=== PATIENT | female | born 1980 | race Caucasian/White ===

== ENCOUNTER 2019-05-12 01:07 | Day surgery (SDC) | payer BC ==
[2019-05-12] VITALS (8 sets, daily range): BP systolic 101–137; BP diastolic 74–86
[~2019-05-12] VITALS: Ht 167.6 cm; Wt 75.3 kg
[~2019-05-12 01:07] MED LIST: MULT1CAP59 PO
[2019-05-12] MEDS ORDERED: fentaNYL CITR 250 MCG/5 ML AMP ONE (10:05)
[2019-05-12] MEDS ORDERED: LIDOCAINE MPF 1% 5 ML VIAL ONE (10:06)
[2019-05-12] MEDS ORDERED: DEXAMETHASONE SOD PHOS 10MG/ML ONE (10:06)
[2019-05-12] MEDS ORDERED: ONDANSETRON 4 MG/2 ML VIAL ONE (10:06)
[2019-05-12] MEDS ORDERED: PROPOFOL EMUL(*) 10MG/ML 20 ML 20 ML ONE (10:06)
[2019-05-12] MEDS ORDERED: ROCURONIUM BR 10 MG/ML 5 ML SY 5 ML ONE (10:07)
[2019-05-12] MEDS ORDERED: KETAMINE HCL 200 MG/20 ML MDV ONE (10:07)
[2019-05-12] MEDS ORDERED: ROPIVACAINE 0.2% 20 ML VIAL ONE (10:34)
[2019-05-12 10:36] LABS: PLATELET COUNT, AUTOMATED 228 K/uL (150-450)
[2019-05-12] MEDS ORDERED: SUGAMMADEX SOD 200 MG/2 ML SDV ONE (11:17)
[2019-05-12] MEDS ORDERED: KETOROLAC 30 MG/ML VIAL ONE ×3 (11:17→13:21)
[2019-05-12] MEDS ORDERED: HALOPERIDOL LACT 5 MG/ML VIAL IM ONE (11:27)
[2019-05-12] MEDS ORDERED: ePHEDrine 25 MG/5 ML DISP.SYR IVP ONE (11:38)
[2019-05-12] MEDS ORDERED: MIDAZOLAM 2 MG/2 ML VIAL IVP PRN (12:00)
[2019-05-12] MEDS ORDERED: NORMOSOL R SOLN(*) 1000 ML BAG 1,000 ML IV PRN (12:00)
[2019-05-12] MEDS ORDERED: ceFAZolin(*) 1 GM VIAL 1 GM in NS(*) 0.9% 100 ML MINI-BAG 100 ML IVPB ONE (12:00)
[2019-05-12] MEDS ORDERED: FAMOTIDINE 20 MG TAB PO ONE (12:00)
[2019-05-12] MEDS ORDERED: LIDOCAINE/SOD BICARB 8.4% SYR ID ONE (12:00)
[2019-05-12] MEDS ORDERED: fentaNYL CITR 100 MCG/2 ML AMP ONE ×3 (12:09→14:29)
[2019-05-12] MEDS ORDERED: LR(*) 1000 ML BAG 1,000 ML IV ONE (12:18)
[2019-05-12] MEDS ORDERED: ONDANSETRON 4 MG/2 ML VIAL IVP PRN (12:20)
[2019-05-12] MEDS ORDERED: METOCLOPRAMIDE 10 MG/2 ML SDV IVP PRN (12:20)
[2019-05-12] MEDS ORDERED: oxyCODON/ACET (*)5/325MG (CII) 1 TAB TAB PO PRN (12:20)
[2019-05-12] MEDS ORDERED: HYDR-653 PO (12:21)
--- NOTE | 2019-05-12 12:24 | OB/GYN Discharge Summary ---
Discharge Summary Reason for Hosp/Final Diag: (1) Contraception management Status: Acute Hospital Course & Plan: Pt presented for a scheduled BTL. Underwent procedure with out any difficulty. Was discharged home from Post-Op on same day. Lates Vital Signs Vital Signs Date Time Temp Pulse Resp B/P (MAP) Pulse Ox O2 Delivery O2 Flow Rate FiO2 05/12/19 10:16 97.4 64 16 101/80 (87) 97 Room Air Weight (Pounds): 166 Result Diagram: 05/12/19 1027 Condition: Improved Discharge: Home Home Meds Active Scripts Hydrocodone Bit/Acetaminophen (NORCO 5-325 TABLET) 1 Each Tablet, 1 EACH PO Q6H PRN for PAIN, #10 TAB 0 Refills Prov:NETTE ZAMORA DO 05/12/19 Reported Medications Multivitamin (MULTIVITAMINS) 1 Each Capsule, 1 EACH PO, CAPSULE 03/17/19 Follow up with: [facility] [phone], Dr. Zamora [phone] Follow up in: 2 wks PO Discharge Diet: As Tolerates, Resume Prior Admit Diet, Increase Fluid Intake Discharge Activity: As Tolerates, Pelvic Rest Problem Qualifiers (1) Contraception management: Contraceptive encounter type: sterilization Qualified Codes: Z30.2 - Encounter for sterilization NETTE ZAMORA DO May 12, 2019 12:24
--- NOTE | 2019-05-12 12:32 | Post Operative Note ---
Operative Note - REGISTERED NURSE FLOAT POOL Operative Day Date: May 12, 2019 Time: 12:24 Physicians Surgeon: Nette Martinez DO Anesthesia: GET 20 cc 0.2% rupivicaine local Diagnosis Pre-Op Diagnosis: 39 y/o multigravida Contraception: Desires sterility Post-Op Diagnosis: same Procedure Findings: Normal liver, normal galbladder, Uterus 8 week size normal ovaries and fallopian tubes bilaterally. Procedure(s): Laparoscopic BTL with falope rings IUD removal Specimen Removed:(Maybe N/A): 0 Complications: 0 known Fluids Fluids: 1000 cc LR U/o 100 cc Estimated Blood Loss: minimal Dictated Date OP Note Dictated: May 12, 2019 Time OP Note Dictated: 12:32 NETTE MARTINEZ DO May 12, 2019 12:32
--- NOTE | 2019-05-12 12:34 | History & Physical ---
History of Present Illness Age of Patient: 39 : 2 Para or TPAL: 2 Chief Complaint Desires Sterility History of Present Illness 39-year-old 2 para 2 female who presents to clinic to establish care and have a well woman exam. Patient reports that she had her last delivery in 2016 and underwent IUD placement that time. Patient also reports that her last Pap was in 2017. Patient reports that she does have a history of an abnormal Pap smear in 2002 did undergo LEEP procedure that time. Patient currently has Mirena IUD for contraception. Sexually active with one male partner. And monogamous relationship. Patient has questions about long-term not reversible contraception such as tubal ligation. Patient will desire to proceed with tubal ligation if possible. Patient denies any contributory medical history. Surgical history: Orthopedic surgeries the only surgery she's had. Wrist in 1989 in: 2009 shoulder in 2008 and a foot surgery in 2007. Medical history: None Medications woman's multivitamin daily. Allergies no known drug allergies Family history both parents still live mother did have cancer of the mouth. Social history patient denies use of tobacco products or recreational drugs. Does have roughly 3-4 glasses of alcohol per week. Gynecological history both vaginal deliveries last menstrual period is unknown secondary to Mirena IUD. Menarche was age 18 and typically every 30 days she'll cycle with 4 days of withdrawal bleed. History Allergies: Coded Allergies: No Known Drug Allergies (Unverified , 03/17/19) Social History: Denies Tobacco and recreational drug use Family History: Patient reports no known family medical history. Med Rec Home Meds Active Scripts Hydrocodone Bit/Acetaminophen (NORCO 5-325 TABLET) 1 Each Tablet, 1 EACH PO Q6H PRN for PAIN, #10 TAB 0 Refills Prov:NETTE ZAMORA DO 05/12/19 Reported Medications Multivitamin (MULTIVITAMINS) 1 Each Capsule, 1 EACH PO, CAPSULE 03/17/19 Review of Systems All Systems Reviewed/Normal: Yes, Except as Noted Constitutional: No Fever, No Weight Loss, No Weight Gain, No Chills, No Night Sweats, No Other Neurological: No Syncope, No Confusion, No Weakness, No Dizziness, No Slurred Speech, No Other Eyes: No Vision Change, No Loss of Vision, No Photophobia, No Other ENT: No Hearing Loss, No Sinus Congestion, No Sore Throat, No Ear Ache, No Tinnitus, No Other Cardiovascular: No Chest Pain, No Palpitations, No Orthostatic Hypotension, No Other Respiratory: No Shortness of Breath, No Cough, No Wheezing, No Other Gastrointestinal: No Nausea, No Vomiting, No Diarrhea, No Dysphagia, No Constipation, No Early Satiety, No Hematemesis, No Hematochezia, No Melena, No Abdominal Pain, No Other Genitourinary: No Dysuria, No Hematuria, No Urinary Incontinence, No Other Musculoskeletal: No Pain, No Sprain, No Strain, No Impaired Mobility, No Other Psychiatric: No Depression, No Anxiety, No Other Exam General Exam Vital Signs Vital Signs Date Time Temp Pulse Resp B/P (MAP) Pulse Ox O2 Delivery O2 Flow Rate FiO2 05/12/19 10:16 97.4 64 16 101/80 (87) 97 Room Air General Apperance: Alert/Awake/No Acute Distress Neuro: No Gross deficits Eyes: Normal Extraocular Movement & Vison, PERRLA ENT: Normal Cardiovascular: Regular Rate and Rhythm Respiratory: No Respiratory Distress Abdomen: Soft, Non-Tender, Non-Distended : Normal Musculoskeletal: No Weakness/Pain Extremities: No Cyanosis,Clubbing or Edema Integumentary: Skin Intact without Lesions or Rash Psychological: Alert & Oriented X3, Appropriate Mood & Affect Medical Decision Making Data Points Result Diagram: 05/12/19 1027 Pre-Admit Course Medical Record Review: Yes VTE Prophylasis: Adult Deep Vein Thrombosis/Pulmonary: No Assessment and Plan NURSE SUBSTANCE ABUSE Assessment: Stable Problems: (1) Contraception management Status: Acute Assessment & Plan: Proceed with IUD removal and Tubal ligation. Consents signed. Problem Qualifiers (1) Contraception management: Contraceptive encounter type: sterilization Qualified Codes: Z30.2 - Encounter for sterilization NETTE ZAMORA DO May 12, 2019 12:34
[2019-05-12] MEDS ORDERED: APAP/HYDROCODONE 325/5 TAB PO ONE ×2 (13:20→14:35)
--- NOTE | 2019-05-12 13:45 | NUR ---
PT REQUESTED TO USE BATHROOM, ATTEMPTED TO DO ORTHOSTATIC BLOOD PRESSURES HOWEVER PT FELT DIZZY WHEN STOOD AND SAT BACK DOWN. PT REQUESTED TO USE BEDSIDE COMMODE. PT ABLE TO PIVOT TO COMMODE, PT URINATED, PT TRANSFERED BACK TO BED WITHOUT ADVERSE EVENT, ICE BACK TO LOWER ABDOMEN, QUEEZY IN BED WITH PT. PT STATES NAUSEA BETTER, PAIN SLIGHTLY BETTER. PT REQUESTS TO TRY TO SLEEP FOR AWHILE, RN AGREED. SPOUSE AT BEDSIDE.
[2019-05-12] MEDS ORDERED: IBUPROFEN 800 MG TAB PO SCH (17:00)
--- NOTE | 2019-05-13 02:23 | OPERATIVE REPORT 1 ---
EVENT DATE: May 12, 2019 SURGEON: Raghav Martinez DO ANESTHESIOLOGIST: Ellis Sepulveda MD ANESTHESIA: General endotracheal intubation, in addition to 20 mL of 0.2% ropivacaine for local only. PREOPERATIVE DIAGNOSES 1. A 39-year-old multigravida. 2. Contraception; desires permanent sterility. POSTOPERATIVE DIAGNOSES 1. A 39-year-old multigravida. 2. Contraception; desires permanent sterility. PROCEDURE PERFORMED 1. Laparoscopic tubal ligation with Falope ring placement. 2. IUD removal. FINDINGS Normal liver, normal gallbladder. Uterus 8 weeks' size, with normal ovaries and fallopian tubes bilaterally. There was bilateral fallopian tube blanching post Falope ring application. ESTIMATED BLOOD LOSS Minimal. INTRAVENOUS FLUIDS 1000 mL of lactated Ringer's. URINE OUTPUT 100 mL. COMPLICATIONS Unknown. CONDITION Stable to PACU and then to Same Day Surgery. COUNTS Correct for all needles, laps, sponges, and instruments. INDICATIONS AND CONSENT Patient is a 39-year-old multigravida female who presented to the office for a tubal ligation consultation. Patient desired to have her IUD removed secondary to undesired side effects, but did not want children at that time. She desired to proceed with laparoscopic tubal ligation. She signed the appropriate consents. DESCRIPTION OF PROCEDURE Patient was taken to the operating room, where she was placed in the dorsal supine position. She then had general endotracheal intubation achieved. Once anesthesia was achieved, she was then placed in the lithotomy position. She was prepped and draped in the usual sterile manner. A sterile speculum was placed in the vagina. The cervix was visualized and grasped with a single-tooth tenaculum. IUD strings were unable to be visualized. They were attempted to be grasped with alligator forceps with no success. A small curette was placed through the cervix easily without any difficulty and placed to the fundus. The IUD was felt with the curette and was brought to the cervical os. The IUD string was visualized at this time and grasped with ring forceps. The IUD was removed in its entirety. At this point, the uterus was sounded to be 7 cm. A 6 ALKA manipulator was then placed through the cervix and inflated with 5 mL of air. At this point, the tenaculum was removed from the cervix. The speculum was removed. The surgeon's gloves were changed and patient was removed out of lithotomy position. Attention was turned to the abdomen. Ropivacaine 10 mL was used for the umbilicus as well as the suprapubic incision. Incisions 5 and 8 mm were then made on the skin in the umbilicus and the suprapubic region. Pneumoperitoneum was achieved with a Veress needle. Once pneumoperitoneum was achieved, the camera was placed under laparoscopic visualization through a Visiport trocar. The area under insertion was inspected and found to be without any injury. At this point, the 8 mm trocar was placed under direct laparoscopic visualization without any difficulties. The uterus was anteverted. The right and left fallopian tubes were easily visualized. The Falope ring applicator was then used to apply the first Falope ring on the right fallopian tube in the mid-isthmus region with the applicator. The ring was deployed without any difficulties. Immediate blanching was noted on that fallopian tube. The same procedure was done on the left side with immediate blanching noted in the mid-isthmus region of the left fallopian tube. At this point, the 8 mm trocar was removed under direct laparoscopic visualization. The pneumoperitoneum was released. The skin incisions were then closed with a 4-0 Monocryl in a subcuticular manner. Skin then had Dermabond placed over the incision. The patient then had the ALKA uterine manipulator removed from the cervix without any difficulty. The patient was then awoken and transferred to the recovery room in stable condition. FABIENNE
== END 2019-05-12 13:08 | disposition home or self-care (01) ==
LOC: OR 01:07
PROVIDERS: ATTEND Student in an Organized Health Care Education/Training Program
DX: Z30.2 Encounter for sterilization (principal)
CPT/HCPCS: 36415; 58671; 84703; 85025; J0690; J1100; J1630; J1885; J2001; J2250; J2405; J2704; J2795; J3010; J3490